=== PATIENT | male | born 1985 | race Caucasian/White ===

== ENCOUNTER 2021-07-10 02:22 | Emergency (ER) | payer SELFPAY ==
[2021-07-10 03:29] LABS: Urine Blood Negative (Negative); Urine Glucose Negative (Negative); Urine Protein Negative (Negative); Urine pH 5.5 (5.0-7.0)
[2021-07-10] MEDS ORDERED: NICOTINE 21 MG/PAT TD ONE (03:52)
[2021-07-10 03:55] LABS: Absolute Lymphocytes (CBC) 2.8 K/uL (0.7-4.9); Basophils % 0.7 % (0-1.3); Lymphocytes % 26.4 % (15.3-44.8); RBC Red Blood Cell Count 4.51 M/uL (4.33-5.43)
[2021-07-10 03:58] LABS: Protime INR 0.95
[2021-07-10 04:15] LABS: Barbiturates NEGATIVE (NEGATIVE); Benzodiazepines NEGATIVE (NEGATIVE); Cocaine NEGATIVE (NEGATIVE); METHAMPHETAM NEGATIVE (NEGATIVE); Methadone NEGATIVE (NEGATIVE); Opiates NEGATIVE (NEGATIVE); Phencyclidine NEGATIVE (NEGATIVE); THC Cannibis NEGATIVE (NEGATIVE)
[2021-07-10 04:16] LABS: ALT/SGPT 31 U/L (12-78); AST/SGOT 14 U/L (15-37); Albumin 4.5 g/dL (3.4-5.0); Alkaline Phosphatase 77 U/L (45-117); BUN Blood Urea Nitrogen 8 mg/dL (7-18); Bicarbonate 27 mmol/L (21-32); Bilirubin Direct < 0.1 mg/dL (0-0.2); Bilirubin Total 0.3 mg/dL (0.2-1.0); Glucose Level 103 mg/dL (74-106); Protein, Total 8.2 g/dL (6.4-8.2); Sodium Level 141 mmol/L (136-145)
--- NOTE | 2021-07-10 05:29 | ER ---
Nurse's Notes [facility] – [place], [place] Name: Sergio Hayden Age: 35 yrs Sex: Male : 1985 Arrival Date: 07/10/2021 Time: 02:23 Bed 5 Private MD: Diagnosis: Alcohol use, unspecified with intoxication Presentation: 07/10 03:01 Chief complaint: Patient states: he is feeling depressed, and suicidal tonight he had a bb plan he had a gun and was thinking of killing himself. Coronavirus screen: At this time, the client does not indicate any symptoms associated with coronavirus-19. Ebola Screen: No symptoms or risks identified at this time. Initial Sepsis Screen: Does the patient meet any 2 criteria? No. Patient's initial sepsis screen is negative. Does the patient have a suspected source of infection? No. Patient's initial sepsis screen is negative. Risk Assessment: Do you want to hurt yourself or someone else? Patient reports no desire to harm self or others. Onset of symptoms is unknown. 03:01 Method Of Arrival: Ambulatory bb 03:01 Acuity: NICK 2 bb Historical: - Allergies: 03:04 tylenol # 3 and tylenol # 4; bb - Home Meds: 03:04 None [Active]; bb - PMHx: 03:04 add; bb - PSHx: 03:04 right ankle surgery; bb - Immunization history:: Adult Immunizations up to date, Client reports having NOT received the Covid vaccine. - Social history:: Smoking status: Patient reports the use of cigarette tobacco products, smokes two packs cigarettes per day. Patient uses alcohol, occasionally. street drugs, marijuana. Screenin:40 Abuse screen: Denies threats or abuse. Nutritional screening: No deficits noted. ea Tuberculosis screening: No symptoms or risk factors identified. Fall Risk None identified. Assessment: 03:40 General: Appears in no apparent distress. Behavior is calm, cooperative, appropriate ea for age. Pain: Denies pain. Neuro: Level of Consciousness is awake, alert, obeys commands, Oriented to person, place, time. Respiratory: Airway is patent Respiratory effort is even, unlabored, Respiratory pattern is regular, symmetrical. Derm: Skin is pink, warm \\T\\ dry. 04:00 Reassessment: Patient and/or family updated on plan of care and expected duration. Pain ea level reassessed. Patient is alert, oriented x 3, equal unlabored respirations, skin warm/dry/pink. 05:00 Reassessment: Patient and/or family updated on plan of care and expected duration. Pain ea level reassessed. Patient is alert, oriented x 3, equal unlabored respirations, skin warm/dry/pink. 06:00 Reassessment: Patient and/or family updated on plan of care and expected duration. Pain ea level reassessed. Patient is alert, oriented x 3, equal unlabored respirations, skin warm/dry/pink. 07:20 General: Appears in no apparent distress. comfortable, Behavior is calm, cooperative, sv appropriate for age. Pain: Denies pain. Neuro: Level of Consciousness is awake, alert, obeys commands, Oriented to person, place, time, situation, Moves all extremities. Full function. Respiratory: Respiratory effort is even, unlabored, Respiratory pattern is regular, symmetrical. Derm: Skin is pink, warm \\T\\ dry. 07:30 Reassessment: Breakfast offered, pt refused at this time. sv 08:30 Reassessment: Patient appears in no apparent distress at this time. Patient and/or hb family updated on plan of care and expected duration. Pain level reassessed. 09:30 Reassessment: Patient appears in no apparent distress at this time. No changes from hb previously documented assessment. Patient and/or family updated on plan of care and expected duration. Pain level reassessed. 10:30 Reassessment: Patient appears in no apparent distress at this time. No changes from hb previously documented assessment. 11:30 Reassessment: Patient appears in no apparent distress at this time. No changes from hb previously documented assessment. Patient and/or family updated on plan of care and expected duration. Pain level reassessed. 12:30 Reassessment: Patient appears in no apparent distress at this time. No changes from hb previously documented assessment. 13:21 Reassessment: Patient appears in no apparent distress at this time. No changes from hb previously documented assessment. Patient and/or family updated on plan of care and expected duration. Pain level reassessed. Patient is alert, oriented x 3, equal unlabored respirations, skin warm/dry/pink. 14:30 Reassessment: Patient appears in no apparent distress at this time. Patient and/or hb family updated on plan of care and expected duration. Pain level reassessed. Patient is alert, oriented x 3, equal unlabored respirations, skin warm/dry/pink. 15:46 Reassessment: Patient appears in no apparent distress at this time. Patient and/or sv family updated on plan of care and expected duration. Pain level reassessed. Patient is alert, oriented x 3, equal unlabored respirations, skin warm/dry/pink. Psych: 03:40 [place] Suicide Severity Screening: In the past month, have you wished you were ea or wished you could go to sleep and not wake up? Patient responds "No." "In the past month, have you actually had any thoughts of killing yourself?" Patient responds "yes." "In your lifetime, have you ever done anything, started to do anything, or prepared to do anything to end your life?" Patient responds "no.". Subjective: Delusions are denied, Hallucinations are denied Having thoughts of suicide. Denies suicidal plan. Objective: Patient is cooperative, Speech is normal, Affect is appropriate. Interventions: Patient placed in hospital gown. Searched person for dangerous items. Safety Checks: Personal items have been removed. Door is open. Patient uses tobacco 2 packs. Vital Signs: 03:01 BP 136 / 91; Pulse 94; Resp 16 S; Temp 98.5(O); Pulse Ox 98% on R/A; Weight 56.7 kg bb (R); Height 5 ft. 5 in. (165.10 cm) (R); Pain 0/10; 08:00 BP 122 / 88; Pulse 88; Resp 16; Pulse Ox 98% ; sv 03:01 Body Mass Index 20.80 (56.70 kg, 165.10 cm) bb ED Course: 02:23 Patient arrived in ED. wm 02:34 Patient's name was called from ER lobby. No response. bb 03:04 Triage completed. bb 03:04 Arm band placed on. bb 03:20 Jaylan Polanco MD is Attending Physician. pkl 03:21 Amarilys Wagner, CEE is Primary Nurse. ea 03:30 Initial lab(s) drawn, by me, sent to lab. Urine collected: clean catch specimen, clear, bb EKG done. Inserted saline lock: 20 gauge in right antecubital area, using aseptic technique. Blood collected. 03:37 Urine Drug Screen Sent. oe 03:40 Patient has correct armband on for positive identification. Bed in low position. Call light in reach. Side rails up X2. 07:03 Acetaminophen Sent. ea 07:03 CBC with Diff Sent. ea 07:03 Basic Metabolic Panel Sent. ea 07:03 ETOH Level Sent. ea 07:48 Primary Nurse role handed off by Amarilys Wagner RN sv 07:48 Marti Carmichael, RN is Primary Nurse. sv 12:15 Alcohol Level Sent. sv 13:41 called [facility] to request evaluation. ks 15:16 Theodora with [facility] on ipad facetime evaluating the patient. mt 15:55 Attending Physician role handed off by Jaylan Polanco MD ma2 15:55 Sally Short MD is Attending Physician. ma2 Administered Medications: 03:34 Drug: Nicoderm CQ Patch 21 mg/24 hr 1 patches Route: Transdermal; Site: affected area; ea Outcome: 05:28 Discharge ordered by . pkl 15:55 Discharge ordered by . ma2 16:22 Patient left the ED. mt Signatures: Marti Carmichael, Jaylan Stanford RN, MD MD pkl Ballard, Brenda, RN RN bb Baxter, Heather, RN RN hb Espinosa, Orlando oe Thompson, Moriah ks Amarilys Wagner RN RN ea Alzahri, Mohammad, MD MD ma2 Marsh, Wendy
--- NOTE | 2021-07-10 05:29 | EDPHYS ---
Physician Documentation [facility] Name: Sergio Hayden Age: 35 yrs Sex: Male : 1985 Arrival Date: 07/10/2021 Time: 02:23 Bed 5 Private MD: ED Physician Sally Short HPI: 07/10 03:28 This 35 yrs old Male presents to ER via Ambulatory with complaints of pkl Suicidal Ideation. 03:28 The patient presents to the emergency department with depression, over work, out of pkl work for a few months. Had right ankle surgery 2 months ago at [facility]. Patient said had suicidal ideation tonight. Had a plan to kill himself with his gun. Historical: - Allergies: 03:04 tylenol # 3 and tylenol # 4; bb - Home Meds: 03:04 None [Active]; bb - PMHx: 03:04 add; bb - PSHx: 03:04 right ankle surgery; bb - Immunization history:: Adult Immunizations up to date, Client reports having NOT received the Covid vaccine. - Social history:: Smoking status: Patient reports the use of cigarette tobacco products, smokes two packs cigarettes per day. Patient uses alcohol, occasionally. street drugs, marijuana. ROS: 03:28 Eyes: Negative for injury, pain, redness, and discharge, ENT: Negative for injury, pkl pain, and discharge, Neck: Negative for injury, pain, and swelling, Cardiovascular: Negative for chest pain, palpitations, and edema, Respiratory: Negative for shortness of breath, cough, wheezing, and pleuritic chest pain, Abdomen/GI: Negative for abdominal pain, nausea, vomiting, diarrhea, and constipation, Back: Negative for injury and pain, : Negative for injury, bleeding, discharge, and swelling, MS/Extremity: Negative for injury and deformity, Skin: Negative for injury, rash, and discoloration, Neuro: Negative for headache, weakness, numbness, tingling, and seizure. 03:28 Psych: Positive for depression, suicidal ideation. Exam: 03:28 Head/Face: Normocephalic, atraumatic. Eyes: Pupils equal round and reactive to light, pkl extra-ocular motions intact. Lids and lashes normal. Conjunctiva and sclera are non-icteric and not injected. Cornea within normal limits. Periorbital areas with no swelling, redness, or edema. ENT: Nares patent. No nasal discharge, no septal abnormalities noted. Tympanic membranes are normal and external auditory canals are clear. Oropharynx with no redness, swelling, or masses, exudates, or evidence of obstruction, uvula midline. Mucous membranes moist. Neck: Trachea midline, no thyromegaly or masses palpated, and no cervical lymphadenopathy. Supple, full range of motion without nuchal rigidity, or vertebral point tenderness. No Meningismus. Chest/axilla: Normal chest wall appearance and motion. Nontender with no deformity. No lesions are appreciated. Cardiovascular: Regular rate and rhythm with a normal S1 and S2. No gallops, murmurs, or rubs. Normal PMI, no JVD. No pulse deficits. Respiratory: Lungs have equal breath sounds bilaterally, clear to auscultation and percussion. No rales, rhonchi or wheezes noted. No increased work of breathing, no retractions or nasal flaring. Abdomen/GI: Soft, non-tender, with normal bowel sounds. No distension or tympany. No guarding or rebound. No evidence of tenderness throughout. Back: No spinal tenderness. No costovertebral tenderness. Full range of motion. Skin: Warm, dry with normal turgor. Normal color with no rashes, no lesions, and no evidence of cellulitis. MS/ Extremity: Pulses equal, no cyanosis. Neurovascular intact. Full, normal range of motion. Neuro: Awake and alert, GCS 15, oriented to person, place, time, and situation. Cranial nerves II-XII grossly intact. Motor strength 5/5 in all extremities. Sensory grossly intact. Cerebellar exam normal. Normal gait. 03:28 Psych: Behavior/mood is cooperative, Affect is calm, Patient having thoughts of suicide. Plan for suicide is kill himself with his gun Vital Signs: 03:01 BP 136 / 91; Pulse 94; Resp 16 S; Temp 98.5(O); Pulse Ox 98% on R/A; Weight 56.7 kg bb (R); Height 5 ft. 5 in. (165.10 cm) (R); Pain 0/10; 08:00 BP 122 / 88; Pulse 88; Resp 16; Pulse Ox 98% ; sv 03:01 Body Mass Index 20.80 (56.70 kg, 165.10 cm) bb MDM: 03:20 Patient medically screened. pkl 06:21 Data reviewed: vital signs, nurses notes, lab test result(s), EKG. pkl 15:50 Differential diagnosis: drug withdrawal. acute psychotic break, depression, psychosis ma2 secondary to non-compliance. Counseling: I had a detailed discussion with the patient and/or guardian regarding: the historical points, exam findings, and any diagnostic results supporting the discharge/admit diagnosis, the presence of at least one elevated blood pressure reading (>120/80) during this emergency department visit, the need for outpatient follow up. Response to treatment: the patient's symptoms have markedly improved after treatment. ED course: received signout from dr. pro on this patient as alcohol intoxication who states he was suicidal when intoxicated but not anymore after he became sobar and he wants to go home. dr. pro plan is to wait for [facility] evaluation and go with their recommendation. i evaluated the patient and he states he is not suicidal and want to go home, low risk per SAD MAN score. [facility] also evaluated the patietn and they advised outpatient management they will set an appointment with him, they also advised that he is staying with his mom and has good support system. he has a gun and mom has taken it and she will store it away from him . 07/10 03:21 Order name: Acetaminophen 07/10 03:21 Order name: Basic Metabolic Panel 07/10 03:21 Order name: CBC with Diff 07/10 03:21 Order name: ETOH Level 07/10 03:21 Order name: Hepatic Function; Complete Time: 05:36 07/10 03:21 Order name: PT-INR; Complete Time: 05:36 07/10 03:21 Order name: Ptt, Activated; Complete Time: 05:36 07/10 03:21 Order name: Salicylate; Complete Time: 05:36 07/10 03:21 Order name: Urine Drug Screen; Complete Time: 05:36 07/10 03:21 Order name: Acetaminophen Level; Complete Time: 05:36 EDVA 07/10 03:21 Order name: Basic Metabolic Panel; Complete Time: 05:36 EDVA 07/10 03:21 Order name: CBC with Automated Diff; Complete Time: 05:36 EDVA 07/10 03:21 Order name: Alcohol Serum/Plasma; Complete Time: 05:36 EDMS 07/10 03:29 Order name: Urine Dipstick-Ancillary; Complete Time: 03:34 EDMS 07/10 03:21 Order name: EKG; Complete Time: 03:21 07/10 03:21 Order name: EKG - Nurse/Tech; Complete Time: 03:34 ea 07/10 03:21 Order name: IV Saline Lock; Complete Time: 07:11 ea 07/10 03:21 Order name: Labs collected and sent; Complete Time: 07:11 ea 07/10 03:21 Order name: Suicide Screening ([place]); Complete Time: 09:43 ea 07/10 03:21 Order name: Urine Dipstick-Ancillary (obtain specimen); Complete Time: 03:37 ea 07/10 03:40 Order name: COVID-19 : Document "Date of Symptom Onset" if Symptomatic. 07/10 06:21 Order name: ETOH Level; Complete Time: 09:52 [facility] 07/10 09:24 Order name: EKG Electrocardiogram; Complete Time: 12:15 [facility] 07/10 11:46 Order name: Alcohol Level [facility] 07/10 11:47 Order name: Alcohol Serum/Plasma [facility] 07/10 11:47 Order name: Diet Finger Food; Complete Time: 11:47 sv Administered Medications: 03:34 Drug: Nicoderm CQ Patch 21 mg/24 hr 1 patches Route: Transdermal; Site: affected area; ea Disposition Summary: 07/10/21 15:55 Discharge Ordered Location: Home(07/10/21 15:55) ma2 Condition: Stable(07/10/21 15:55) ma2 Diagnosis - Alcohol use, unspecified with intoxication ma2 Followup: ma2 - With: Private Physician - When: Tomorrow - Reason: Continuance of care Discharge Instructions: - Discharge Summary Sheet ma2 - Alcohol Intoxication, [id number] ma2 Forms: - Medication Reconciliation Form ma2 - Thank You Letter ma2 - Antibiotic Education ma2 - Prescription Opioid Use ma2 Signatures: Dispatcher [employer] EDJaylan Lee MD MD pkl Ballard, Brenda, RN RN bb Antunez, Elena, RN RN ea Alzahri, Mohammad, MD MD ma2 Corrections: (The following items were deleted from the chart) 05:29 05:28 Home pkl pkl 05:29 05:28 new pkl pkl 05:29 05:28 have improved pkl pkl 05: 05:28 Stable pkl pkl 05:29 05:28 Head injury. Substance abuse pkl pkl
--- NOTE | 2021-07-10 07:42 | EKG ---
Test Date: 2021-07-10 Test Time: 03:27:17 Control Operator Flow Coat: MELANY MEASUREMENT RESULTS: Intervals: Rate: 0 ID: QRSD: 0 QT: 0 QTc: 0 [place]: P: ID: QRS: 0 T: 0 INTERPRETIVE STATEMENTS: No QRS complexes found, no ECG analysis possible No previous ECG available for comparison Electronically Signed On 07-10-21 07:41:44 CDT by Carl Overton
--- NOTE | 2021-07-10 11:06 | EKG ---
Test Date: 2021-07-10 Test Time: 03:28:42 Sales Account Coordinator: MELANY MEASUREMENT RESULTS: Intervals: Rate: 87 NH: 152 QRSD: 86 QT: 338 QTc: 406 [place]: P: 52 NH: 152 QRS: 31 T: 21 INTERPRETIVE STATEMENTS: Normal sinus rhythm Normal ECG Compared to ECG 07/10/2021 03:27:17 No significant changes Electronically Signed On 07-10-21 11:05:33 CDT by Carl Overton
[2021-07-10 16:41] VITALS: TEMP 98.5; O2SAT 98
[2021-07-10 16:42] VITALS: BP 122/88
== END 2021-07-10 16:22 | disposition home or self-care (01) ==
LOC: ER 02:22
DX: F10.929 Alcohol use, unspecified with intoxication, unspecified (principal)
CPT/HCPCS: 36415; 80048; 80076; 80307; 80320; 80329; 81003; 85025; 85610; 85730; 93005; 99284

== ENCOUNTER 2023-10-20 13:21 | Emergency (ER) | payer SELFPAY ==
--- NOTE | 2023-10-20 14:36 | RAD REPORT ---
EXAM DESCRIPTION: CT - Head Brain Wo Cont - 10/20/2023 2:28 pm CLINICAL HISTORY: Headache COMPARISON: none TECHNIQUE: Computed axial tomography of the head was obtained. IV contrast was not requested. All CT scans are performed using dose optimization technique as appropriate and may include automated exposure control or mA/KV adjustment according to patient size. FINDINGS: Some of the images are degraded by patient motion artifact An intracranial bleed is not seen The ventricles are normal in caliber No significant hypodense areas within the brain visualized No extra-axial fluid collection is noted. Small calcifications right parietal lobe may be secondary to prior inflammation or vascular anomaly Fluid within the sinuses/ mastoids is not seen IMPRESSION: No acute intracranial abnormality is seen If patient's symptoms persist MRI of the brain would be recommended
[2023-10-20 14:37] LABS: Absolute Lymphocytes (CBC) 1.4 K/uL (0.7-4.9); Hematocrit 46.6 % (39.6-49.0); Lymphocytes % 13.4 % (15.3-44.8); MCV 100.3 fL (80-100); MPV 7.4 fL (7.6-11.3); Platelets 361 thou/uL (152-406); RBC Red Blood Cell Count 4.65 M/uL (4.33-5.43)
[2023-10-20 14:38] LABS: Protime INR 1.01
--- NOTE | 2023-10-20 14:40 | RAD REPORT ---
EXAM DESCRIPTION: [place] Single View10/20/2023 2:32 pm CLINICAL HISTORY: Chest pain COMPARISON: none FINDINGS: Calcified granuloma left lung. The lungs appear clear of acute infiltrate. The heart is normal size IMPRESSION: No acute abnormalities displayed
[2023-10-20 14:52] LABS: Bilirubin Direct 0.1 mg/dL (0-0.2); Bilirubin Indirect, Calculated 0.3 mg/dL (0.2-0.8); Bilirubin Total 0.4 mg/dL (0.2-1.0); Magnesium 1.9 mg/dL (1.6-2.4); Potassium 4.1 mEq/L (3.5-5.1); Protein, Total 7.5 g/dL (6.4-8.2)
[2023-10-20 16:18] LABS: Barbiturates NEGATIVE (NEGATIVE); Benzodiazepines POSITIVE (NEGATIVE); Cocaine NEGATIVE (NEGATIVE); METHAMPHETAM NEGATIVE (NEGATIVE); Methadone NEGATIVE (NEGATIVE); Opiates NEGATIVE (NEGATIVE); Phencyclidine NEGATIVE (NEGATIVE); THC Cannibis POSITIVE (NEGATIVE)
[2023-10-20] MEDS ORDERED: NA CHLORIDE 0.9% 1,000 ML ONE (16:18)
[2023-10-20] MEDS ORDERED: KETOROLAC 30 MG/ML INJ ONE (16:18)
[2023-10-20] MEDS ORDERED: DIPHENHYDRAMINE 50 MG/ML VIAL ONE (16:18)
[2023-10-20] MEDS ORDERED: METOCLOPRAMIDE 10 MG/2mL INJ ONE (16:18)
[2023-10-20 16:26] LABS: Specific Gravity 1.011 (1.005-1.030); Urine Bacteria None Seen /HPF (<20); Urine Bilirubin NEGATIVE (Negative); Urine Blood Negative (Negative); Urine Clarity Clear (Clear); Urine Color Colorless (Yellow); Urine Glucose NEGATIVE (Negative); Urine Mucus Slight /HPF (None Seen); Urine Protein NEGATIVE (Negative); Urine RBC <5 /HPF (None Seen); Urine Urobilinogen Normal (Normal); Urine pH 5.5 (5.0-7.0)
--- NOTE | 2023-10-20 16:34 | ER ---
Nurse's Notes [facility] Name: Sergio Hayden Age: 37 yrs Sex: Male : 1985 Arrival Date: 10/20/2023 Time: 13:21 Bed 6 Private MD: Diagnosis: Headache;Other visual disturbances;Nausea with vomiting, unspecified;Other seizures Presentation: 10/20 13:39 Chief complaint: Parent and/or Guardian states: he has been having a bad headache for 3 nj1 months, taking aleve. Has been loosing weight along with nausea and vomiting. Has had 2 seizures six months ago, a few days apart, no history. Seems confused, agitated, forgetting things/conversations. Sometimes has trouble with his vision "being blurry". Coronavirus screen: Vaccine status: Patient reports being unvaccinated. Ebola Screen: Patient denies travel to an Ebola-affected area in the 21 days before illness onset. Initial Sepsis Screen: Does the patient meet any 2 criteria? No. Patient's initial sepsis screen is negative. Does the patient have a suspected source of infection? No. Patient's initial sepsis screen is negative. Risk Assessment: Do you want to hurt yourself or someone else? Patient reports no desire to harm self or others. Onset of symptoms was July 2023. 13:39 Method Of Arrival: Ambulatory [facility] 13:39 Acuity: NICK 3 nj1 Historical: - Allergies: 13:44 tylenol # 3 and tylenol # 4; nj1 - PMHx: 13:44 ADD; nj1 - PSHx: 13:44 right ankle surgery; nj1 - Immunization history:: Client reports having NOT received the Covid vaccine. - Social history:: Smoking status: Patient reports the use of cigarette tobacco products, smokes one pack cigarettes per day. Screenin:30 [facility] ED Fall Risk Assessment (Adult) History of falling in the last 3 months, ko1 including since admission No falls in past 3 months (0 pts) Confusion or Disorientation No (0 pts) Intoxicated or Sedated No (0 pts) Impaired Gait No (0 pts) Mobility Assist Device Used No (0 pt) Altered Elimination No (0 pt) Score/Fall Risk Level 0 - 2 = Low Risk Oriented to surroundings, Maintained a safe environment, Educated pt \\T\\ family on fall prevention, incl call for assistance when getting out of bed, Assessed \\T\\ reinforced patient's understanding of fall precautions, Provided non-skid footwear, Hourly rounding (assess needs \\T\\ fall precautionary measures) done, Used ambulatory aids as needed (educated on \\T\\ assisted with), Used gait belt as appropriate. Abuse screen: Denies threats or abuse. Denies injuries from another. Nutritional screening: No deficits noted. Tuberculosis screening: No symptoms or risk factors identified. Assessment: 13:30 General: Appears in no apparent distress. comfortable, Behavior is calm, cooperative, ko1 appropriate for age. Pain: Complains of pain in headache. Neuro: No deficits noted. Cardiovascular: No deficits noted. Respiratory: No deficits noted. GI: No deficits noted. : No deficits noted. EENT: No deficits noted. Derm: No deficits noted. Musculoskeletal: No deficits noted. Vital Signs: 13:39 BP 140 / 96; Pulse 89; Resp 18; Temp 98.6(O); Pulse Ox 97% ; Weight 58.97 kg; Height 5 nj1 ft. 5 in. ; Pain 6/10; 14:19 BP 156 / 95; Pulse 89; Resp 17; Temp 99; Pulse Ox 98% ; Weight 61.23 kg; Height 5 ft. 5 ls5 in. ; Pain 6/10; 16:50 BP 148 / 88; Pulse 85; Resp 14; Pulse Ox 99% ; ko1 14:19 Body Mass Index 22.46 (61.23 kg, 165.1 cm) ls5 13:39 Pain Scale: Adult nj1 14:19 Pain Scale: Adult ls5 ED Course: 13:23 Patient arrived in ED. im 13:26 Fred Stevens PA is PHCP. cp 13:26 Fred Echavarria MD is Attending Physician. cp 13:30 Patient has correct armband on for positive identification. Bed in low position. Call ko1 light in reach. Provided Education on: na. Pulse ox on. NIBP on. Door closed. Noise minimized. Lights dimmed. Warm blanket given. 13:30 No provider procedures requiring assistance completed. ko1 13:44 Triage completed. nj1 13:44 Arm band placed on right wrist. nj1 13:45 Isis See, CEE is Primary Nurse. ko1 14:14 Inserted saline lock: 20 gauge in right antecubital area, using aseptic technique. ls5 Blood collected. 14:15 EKG done, by ED staff, reviewed by Fred MUSA. ls5 14:29 CT Head Brain wo Cont In Process Unspecified. EDMS 14:34 XRAY Chest (1 view) In Process Unspecified. EDMS 15:55 UDS Sent. ls5 15:55 Urinalysis W/Microscopic Sent. ls5 16:32 Salomon Vila MD is Referral Physician. cp 16:50 IV discontinued, intact, bleeding controlled, No redness/swelling at site. Pressure ko1 dressing applied. Administered Medications: 16:20 Drug: NS 0.9% IV 1000 ml IV at 1 bolus Per protocol; 1000 mL bolus Route: IV; Rate: 1 ko1 bolus; Site: right antecubital; 16:21 Drug: metoCLOPramide IVP 10 mg IVP once; over 1 to 2 minutes Route: IVP; Site: right ko1 antecubital; 16:23 Drug: Ketorolac IVP 15 mg IVP once Route: IVP; Site: right antecubital; ko1 16:25 Drug: diphenhydrAMINE IVP 25 mg IVP once Route: IVP; Site: right antecubital; ko1 Medication: 16:50 VIS not applicable for this client. ko1 Outcome: 16:33 Discharge ordered by MD. cp 16:59 Patient left the ED. ph Signatures: Dispatcher [employer] Nisreen Landers RN Fred Kolb ph, PA PA cp Isis See, RN RN ko1 Alfredo Rivera ls5 Johanny Marcano RN RN nj1 Adrienne Cotto im
--- NOTE | 2023-10-20 16:34 | EDPHYS ---
Physician Documentation [facility] Name: Sergio Hayden Age: 37 yrs Sex: Male : 1985 Arrival Date: 10/20/2023 Time: 13:21 Bed 6 Private MD: FANG Physician Fred Echavarria HPI: 10/20 14:20 This 37 yrs old Male presents to ER via Ambulatory with complaints of Headache, Blurred cp Vision, Nausea, Vomiting, Probable Seizure. 14:20 The patient complains of pain to the general. The patient describes the headache as cp aching, constant, waxing and waning. Onset: The symptoms/episode began/occurred June 2023. Associated signs and symptoms: Pertinent positives: Intermittent blurred vision, intermittent nausea vomiting and reports about 2 seizure episodes in which patient lost consciousness and had generalized shaking but no loss of bowel or bladder function. Mother who provides much of the history reports patient did have seizures as an adolescent but has not had any seizures up until recently and is not on any current seizure therapy. Severity of symptoms: in the emergency department the pain is unchanged, despite home interventions. 14:20 Patient does admit to daily alcohol use of approximately 6 pack of beer. cp Historical: - Allergies: 13:44 tylenol # 3 and tylenol # 4; nj1 - PMHx: 13:44 ADD; nj1 - PSHx: 13:44 right ankle surgery; nj1 - Immunization history:: Client reports having NOT received the Covid vaccine. - Social history:: Smoking status: Patient reports the use of cigarette tobacco products, smokes one pack cigarettes per day. ROS: 14:25 Constitutional: Negative for body aches, chills, fever, poor PO intake, cp 14:25 Eyes: Positive for blurry vision, Negative for discharge, pain, redness, cp 14:25 ENT: Negative for drainage from ear(s), ear pain, sore throat, difficulty swallowing, difficulty handling secretions, 14:25 Neck: Negative for pain with movement, pain at rest, stiffness, 14:25 Cardiovascular: Negative for chest pain, edema, palpitations, 14:25 Respiratory: Negative for cough, shortness of breath, wheezing, 14:25 Abdomen/GI: Positive for nausea and vomiting, Negative for abdominal pain, diarrhea, constipation, black/tarry stool, rectal bleeding, 14:25 Back: Negative for pain at rest, pain with movement, 14:25 : Negative for urinary symptoms, flank pain, testicular pain 14:25 Neuro: Positive for headache, history of seizure activity, Negative for altered mental status, numbness, speech changes, 14:25 All other systems are negative, Exam: 14:05 ECG was reviewed by the Attending Physician. cp 14:30 Constitutional: The patient appears in no acute distress, alert, awake, cp non-diaphoretic, non-toxic, well developed, well nourished, 14:30 Head/Face: Normocephalic, atraumatic. cp 14:30 Eyes: Periorbital structures: appear normal, Pupils: equal, round, and reactive to light and accomodation, Extraocular movements: intact throughout, Conjunctiva: normal, no exudate, no injection, Sclera: no appreciated abnormality, Lids and lashes: appear normal, bilaterally, 14:30 ENT: External ear(s): are unremarkable, Ear canal(s): are normal, clear, TM's: dullness, bilaterally, Nose: is normal, Mouth: Lips: moist, Oral mucosa: pink and intact, moist, Posterior pharynx: Airway: no evidence of obstruction, patent, erythema, is not appreciated, exudate, is not appreciated, 14:30 Neck: ROM/movement: is normal, is supple, without pain, no range of motions limitations, no meningismus, no nuchal rigidity, 14:30 Chest/axilla: Inspection: normal, Palpation: is normal, no crepitus, no tenderness, 14:30 Cardiovascular: Rate: normal, Rhythm: regular, 14:30 Respiratory: the patient does not display signs of respiratory distress, Respirations: normal, no use of accessory muscles, no retractions, labored breathing, is not present, Breath sounds: are clear throughout, no decreased breath sounds, no stridor, no wheezing, 14:30 Abdomen/GI: Inspection: abdomen appears normal, Bowel sounds: active, all quadrants, Palpation: abdomen is soft and non-tender, in all quadrants, 14:30 Back: pain, is absent, ROM is normal, 14:30 Skin: no rash present. 14:30 Neuro: Orientation: to person, place \T\ time. Mentation: is normal, Cerebellar function: Romberg testing is negative, normal finger to nose testing, heel to lamb testing is normal, Motor: moves all fours, strength is normal, Sensation: is normal, Vital Signs: 13:39 BP 140 / 96; Pulse 89; Resp 18; Temp 98.6(O); Pulse Ox 97% ; Weight 58.97 kg; Height 5 nj1 ft. 5 in. ; Pain 6/10; 14:19 BP 156 / 95; Pulse 89; Resp 17; Temp 99; Pulse Ox 98% ; Weight 61.23 kg; Height 5 ft. 5 ls5 in. ; Pain 6/10; 16:50 BP 148 / 88; Pulse 85; Resp 14; Pulse Ox 99% ; ko1 14:19 Body Mass Index 22.46 (61.23 kg, 165.1 cm) ls5 13:39 Pain Scale: Adult nj1 14:19 Pain Scale: Adult ls5 MDM: 13:48 Patient medically screened. 16:33 Data reviewed: vital signs, nurses notes, lab test result(s), EKG, radiologic studies, cp CT scan, plain films. 16:33 I considered the following discharge prescriptions or medication management in the emergency department Medications were administered in the Emergency Department. See MAR. Independent interpretation of the following test(s) in the Emergency Department EKG: See my EKG interpretation above. Historians other than the Patient: Parent: mother provides HPI. Counseling: I had a detailed discussion with the patient and/or guardian regarding the historical points, exam findings, and any diagnostic results supporting the discharge/admit diagnosis, lab results, radiology results, the need for outpatient follow up, for definitive care, a family practitioner, a neurologist, to return to the emergency department if symptoms worsen or persist or if there are any questions or concerns that arise at home. 10/20 14:17 Order name: Basic Metabolic Panel; Complete Time: 15:05 10/20 15:05 Interpretation: Normal except: GLUC 127. 10/20 14:17 Order name: CBC with Diff; Complete Time: 15:05 10/20 15:07 Interpretation: Normal except: MCV 100.3; MPV 7.4; RODERICK% 75.9; LYM% 13.4. 10/20 14:17 Order name: LFT's; Complete Time: 15:05 10/20 15:07 Interpretation: Reviewed. 10/20 14:17 Order name: Magnesium; Complete Time: 15:05 cp 10/20 15:09 Interpretation: Reviewed. cp 10/20 14:17 Order name: PT-INR; Complete Time: 15:05 cp 10/20 15:08 Interpretation: Reviewed. cp 10/20 15:05 Order name: Urinalysis W/Microscopic; Complete Time: 16:29 cp 10/20 16:32 Interpretation: Reviewed. cp 10/20 15:05 Order name: UDS; Complete Time: 16:29 cp 10/20 16:29 Interpretation: Normal except: BZO POSITIVE; THC POSITIVE. cp 10/20 14:17 Order name: XRAY Chest (1 view); Complete Time: 15:05 cp 10/20 15:08 Interpretation: Report review. 10/20 14:17 Order name: CT Head Brain wo Cont; Complete Time: 15:05 10/20 15:08 Interpretation: Report reviewed. 10/20 14:17 Order name: EKG; Complete Time: 14:18 cp 10/20 14:17 Order name: Cardiac monitoring; Complete Time: 14:44 cp 10/20 14:17 Order name: EKG - Nurse/Tech; Complete Time: 14:41 cp 10/20 14:17 Order name: IV Saline Lock; Complete Time: 14:41 cp 10/20 14:17 Order name: Labs collected and sent; Complete Time: 14:41 10/20 14:17 Order name: O2 Per Protocol; Complete Time: 14:36 10/20 14:17 Order name: O2 Sat Monitoring; Complete Time: 14:36 cp EC:05 Rate is 84 beats/min. Rhythm is regular. WA interval is normal. QRS interval is normal. cp QT interval is normal. T waves are Inverted in lead aVR. Interpreted by me. Reviewed by me. Administered Medications: 16:20 Drug: NS 0.9% IV 1000 ml IV at 1 bolus Per protocol; 1000 mL bolus Route: IV; Rate: 1 ko1 bolus; Site: right antecubital; 16:21 Drug: metoCLOPramide IVP 10 mg IVP once; over 1 to 2 minutes Route: IVP; Site: right ko1 antecubital; 16:23 Drug: Ketorolac IVP 15 mg IVP once Route: IVP; Site: right antecubital; ko1 16:25 Drug: diphenhydrAMINE IVP 25 mg IVP once Route: IVP; Site: right antecubital; ko1 Disposition Summary: 10/20/23 16:33 Discharge Ordered Notes: Location: Home cp Problem: new cp Symptoms: have improved cp Condition: Stable cp Diagnosis - Headache cp - Other visual disturbances cp - Nausea with vomiting, unspecified cp - Other seizures cp Followup: cp - With: Salomon Vila MD - When: 2 - 3 days - Reason: Recheck today's complaints Discharge Instructions: - Discharge Summary Sheet cp - Blurred Vision, Adult cp - General Headache Without Cause cp - Nausea and Vomiting, Adult cp - Seizure, Adult cp Forms: - Medication Reconciliation Form cp - Thank You Letter cp - Antibiotic Education cp - Prescription Opioid Use cp - Patient Portal Instructions cp - Leadership Thank You Letter cp Prescriptions: - Fioricet 50-300-40 mg Oral capsule - take 1 capsule ORAL route every 6 hours As needed; 20 capsule; Refills: 0, cp Product Selection Permitted - promethazine 25 mg Oral Tablet - take 1 tablet ORAL route every 6 hours As needed; 20 tablet; Refills: 0, cp Product Selection Permitted Signatures: Dispatcher [employer] EDFred Rudolph PA PA cp Isis See RN RN ko1 Johanny Marcano RN RN nj1
[2023-10-20 17:22] VITALS: TEMP 99
[2023-10-20 17:28] VITALS: BP 148/88; O2SAT 99
--- NOTE | 2023-10-24 12:35 | EKG ---
Test Date: 2023-10-20 Test Time: 13:56:07 Architectural Practice Manager: JO MEASUREMENT RESULTS: Intervals: Rate: 84 TX: 150 QRSD: 98 QT: 336 QTc: 397 Cantril: P: 46 TX: 150 QRS: 58 T: 41 INTERPRETIVE STATEMENTS: Normal sinus rhythm Normal ECG Compared to ECG 07/10/2021 03:28:42 No significant changes Electronically Signed On 10-24-23 12:28:13 CONGRESSIONAL DISTRICT AIDE by Dagoberto Acevedo
== END 2023-10-20 16:59 | disposition home or self-care (01) ==
LOC: ER 13:21
DX: R51.9 Headache, unspecified (principal); H53.8 Other visual disturbances; R11.2 Nausea with vomiting, unspecified; R56.9 Unspecified convulsions; F17.210 Nicotine dependence, cigarettes, uncomplicated; Z88.5 Allergy status to narcotic agent; Z88.6 Allergy status to analgesic agent; Z28.310 Unvaccinated for COVID-19
CPT/HCPCS: 36415; 70450; 71045; 80048; 80076; 80307; 81001; 83735; 85025; 85610; 93005; 96374; 96375; 99284; J1200; J2765; J7030

== ENCOUNTER 2025-03-27 02:10 | Emergency (ER) | payer SELFPAY ==
[2025-03-27] MEDS ORDERED: IBUPROFEN 400 MG TAB ONE (02:49)
[2025-03-27] MEDS ORDERED: HYDROCODONE/APAP 10/325 TAB ONE (02:53)
[2025-03-27] MEDS ORDERED: methocarbamoL 750 MG TAB ONE (02:53)
--- NOTE | 2025-03-27 04:31 | ER ---
Nurse's Notes [facility] Name: Sergio Hayden Age: 39 yrs Sex: Male : 1985 Arrival Date: 03/27/2025 Time: 02:10 Bed 18 Private MD: Diagnosis: Acute right ankle sprain, acute right ankle lateral ligaments sprain Presentation: 03/27 02:12 Chief complaint: Patient states: TWISTED RIGHT ANKLE, C/O PAIN TO LATERAL RIGHT ANKLE. br2 PT STATES HE HAS PINS IN THAT LEG DUE TO A PREVIOUS INJURY. Coronavirus screen: Client denies travel out of the [place] in the last 14 days. Ebola Screen: Patient denies exposure to infectious person. Initial Sepsis Screen: Does the patient meet any 2 criteria? No. Patient's initial sepsis screen is negative. Does the patient have a suspected source of infection?. Risk Assessment: Do you want to hurt yourself or someone else? Patient reports no desire to harm self or others. Onset of symptoms was March 27, 2025 at 01:00. 02:12 Method Of Arrival: EMS: [facility] br2 02:12 Acuity: NICK 4 br2 02:24 Care prior to arrival: None. Mechanism of Injury: Fall down 5 steps. Trauma event rg5 details: Injury occurred in the [facility]. Triage Assessment: 02:15 General: Appears uncomfortable, Behavior is calm, cooperative. Pain: Complains of pain br2 in right ankle Pain currently is 8 out of 10 on a pain scale. Musculoskeletal: Capillary refill < 3 seconds, Range of motion: intact in right ankle. Historical: - Allergies: 02:15 tylenol # 3 and tylenol # 4; br2 - PMHx: 02:15 ADD; br2 - PSHx: 02:15 right ankle surgery; br2 - Immunization history:: Adult Immunizations up to date. - Infectious Disease History:: Denies. - Immunization history: Last tetanus immunization: unknown. - Social history:: Smoking status: Patient reports the use of cigarette tobacco products, smokes one pack cigarettes per day. Patient uses alcohol, occasionally. Patient/guardian denies using street drugs. - Family history:: not pertinent. Screenin:24 Abuse screen: Denies threats or abuse. Tuberculosis screening: No symptoms or risk rg5 factors identified. 02:30 [facility] ED Fall Risk Assessment (Adult) History of falling in the last 3 months, rg5 including since admission Yes- single mechanical fall (1 pt) Confusion or Disorientation No (0 pts) Intoxicated or Sedated No (0 pts) Impaired Gait No (0 pts) Mobility Assist Device Used No (0 pt) Altered Elimination Score/Fall Risk Level 0 - 2 = Low Risk Oriented to surroundings, Maintained a safe environment, Provided non-skid footwear. Nutritional screening: No deficits noted. Primary Survey: 02:24 NO uncontrolled hemorrhage observed. A: The client is awake and alert. The airway is rg5 patent. Breathing/Chest: Spontaneous respiratory effort, equal unlabored respirations, breath sounds clear bilaterally, regular pattern, symmetrical chest rise and fall. Circulation: No external hemorrhage present. Regular and strong central pulse, skin warm/dry/normal color. Disability Pupils are equal, round, reactive to light and accommodation. Client is alert. Exposure/Environment: All clothing and personal items were removed. Forensic evidence collection is not deemed to be indicated at this time. Items placed in patient belonging bag. There is no evidence of uncontrolled external bleeding. Assessment: 02:24 General: Appears in no apparent distress. comfortable, Behavior is calm, cooperative, rg5 appropriate for age. Pain: Complains of pain in right foot Pain currently is 9 out of 10 on a pain scale. Quality of pain is described as aching, Pain began 30 min ago. Neuro: Level of Consciousness is awake, alert, obeys commands, Oriented to person, place, time, situation. EENT: No signs and/or symptoms were reported regarding the EENT system. Cardiovascular: Patient's skin is warm and dry. Respiratory: Airway is patent Trachea midline Respiratory effort is even, unlabored. GI: No signs and/or symptoms were reported involving the gastrointestinal system. : No signs and/or symptoms were reported regarding the genitourinary system. Derm: Skin is intact, Skin is dry, Skin is normal, Skin temperature is warm. Musculoskeletal: Circulation, motion, and sensation intact. Range of motion: intact in all extremities. 03:00 Reassessment: Patient and/or family updated on plan of care and expected duration. Pain rg5 level reassessed. Patient is alert, oriented x 3, equal unlabored respirations, skin warm/dry/pink. 04:05 Reassessment: Patient and/or family updated on plan of care and expected duration. Pain rg5 level reassessed. Patient is alert, oriented x 3, equal unlabored respirations, skin warm/dry/pink. Patient states feeling better. Patient states symptoms have improved. Vital Signs: 02:12 BP 138 / 90; Pulse 101; Resp 18; Temp 97.4(TE); Pulse Ox 99% on R/A; Weight 58.97 kg; br2 Height 5 ft. 5 in. ; Pain 8/10; 02:30 BP 132 / 83; Pulse 95; Resp 18; Pulse Ox 98% on R/A; rg5 03:00 BP 121 / 79; Pulse 93; Resp 18; Pulse Ox 98% on R/A; rg5 04:01 BP 122 / 76; Pulse 97; Pulse Ox 100% on R/A; Pain 0/10; rg5 02:12 Body Mass Index 21.63 (58.97 kg, 165.1 cm) br2 02:12 Pain Scale: Adult br2 04:01 Pain Scale: Adult rg5 [place] Coma Score: 02:24 Eye Response: spontaneous(4). Motor Response: obeys commands(6). Verbal Response: rg5 oriented(5). Total: 15. 20:52 Eye Response: spontaneous(4). Motor Response: obeys commands(6). Verbal Response: sp4 oriented(5). Total: 15. Trauma Score (Adult): 02:24 Eye Response: spontaneous(1); Verbal Response: oriented(1); Motor Response: obeys rg5 commands(2); Systolic BP: > 89 mm Hg(4); Respiratory Rate: 10 to 29 per min(4); Mayra Score: 15; Trauma Score: 12 ED Course: 02:11 Patient arrived in ED. jj6 02:15 Triage completed. br2 02:16 Celestino Gu, CEE is Primary Nurse. rg5 02:24 Patient has correct armband on for positive identification. Bed in low position. Call rg5 light in reach. Side rails up X 1. Patient maintains SpO2 saturation greater than 95% on room air. 02:24 Patient maintains SpO2 saturation greater than 95% on room air. rg5 02:25 Arm band placed on. rg5 02:30 Door closed. Noise minimized. Verbal reassurance given. rg5 02:30 No provider procedures requiring assistance completed. rg5 02:50 Juanito Fuentes MD is Attending Physician. sp4 03:22 Foot Right 3 View XRAY In Process Unspecified. EDMS 03:22 Ankle Right 3 View XRAY In Process Unspecified. EDMS 04:42 Patient did not have IV access during this emergency room visit. bleeding controlled, rg5 No redness/swelling at site. Pressure dressing applied. Administered Medications: 02:58 Drug: Ibuprofen PO 800 mg PO once Route: PO; rg5 04:00 Follow up: Response: No adverse reaction; Pain is decreased rg5 02:59 Drug: Methocarbamol PO 1500 mg PO once Route: PO; rg5 04:01 Follow up: Response: No adverse reaction; Pain is decreased rg5 02:59 Drug: [place] PO 10 mg-325 mg 1 tabs PO once Route: PO; rg5 04:00 Follow up: Response: No adverse reaction; Pain is decreased rg5 Medication: 02:30 VIS not applicable for this client. rg5 Intake: 02:24 PO: 0ml; Total: 0ml. rg5 Outcome: 04:30 Discharge ordered by . sp4 04:42 Discharged to home ambulatory, rg5 04:42 Condition: stable 04:42 Discharge instructions given to patient, Instructed on discharge instructions, Demonstrated understanding of instructions, Prescriptions given X 1, 04:43 Patient left the ED. rg5 Signatures: Dispatcher [employer] GONZALO [place] Mag[place] jj6 Juanito Fuentes MD MD sp4 Celestino Gu RN RN rg5 Cait Isaac RN RN br2
--- NOTE | 2025-03-27 04:31 | EDPHYS ---
Physician Documentation [facility] Name: Sergio Hayden Age: 39 yrs Sex: Male : 1985 Arrival Date: 03/27/2025 Time: 02:10 Bed 18 Private MD: ED Physician Juanito Fuentes HPI: 03/27 04:28 This 39 yrs old Male presents to ER via EMS with complaints of Fall Injury. sp4 20:52 37-year-old male presents with acute right ankle injury. Patient has history of plate sp4 and screws secondary to prior fibula fracture. Reports pain distal right lateral ankle. Patient arrives with EMS. Historical: - Allergies: 02:15 tylenol # 3 and tylenol # 4; br2 - PMHx: 02:15 ADD; br2 - PSHx: 02:15 right ankle surgery; br2 - Immunization history:: Adult Immunizations up to date. - Infectious Disease History:: Denies. - Immunization history: Last tetanus immunization: unknown. - Social history:: Smoking status: Patient reports the use of cigarette tobacco products, smokes one pack cigarettes per day. Patient uses alcohol, occasionally. Patient/guardian denies using street drugs. - Family history:: not pertinent. ROS: 20:52 Constitutional: Negative for fever, chills, and weight loss, positive right ankle sp4 injury, positive right ankle pain 20:52 All other systems are negative, Exam: 20:52 Constitutional: This is a well developed, well nourished patient who is awake, alert, sp4 and in no acute distress. Head/Face: Normocephalic, atraumatic. Eyes: Pupils equal round and reactive to light, extra-ocular motions intact. Lids and lashes normal. Conjunctiva and sclera are not injected. Cornea within normal limits. Periorbital areas with no swelling, redness, or edema. ENT: Nares patent. No nasal discharge, no septal abnormalities noted. Tympanic membranes are normal and external auditory canals are clear. Oropharynx with no redness, swelling, or masses, exudates, or evidence of obstruction, uvula midline. Mucous membranes moist. Neck: Trachea midline, no thyromegaly or masses palpated, and no cervical lymphadenopathy. Supple, full range of motion without nuchal rigidity, or vertebral point tenderness. Chest/axilla: Normal chest wall appearance and motion. Nontender with no deformity. No lesions are appreciated. Cardiovascular: Regular rate and rhythm with a normal S1 and S2. No gallops, murmurs, or rubs. Normal PMI, no JVD. No pulse deficits. Respiratory: Lungs have equal breath sounds bilaterally, clear to auscultation and percussion. No rales, rhonchi or wheezes noted. No increased work of breathing, no retractions or nasal flaring. Abdomen/GI: Soft, with normal bowel sounds. No distension or tympany. No guarding or rebound. No evidence of tenderness throughout. Back: No spinal tenderness. No costovertebral tenderness. Skin: Warm, dry with normal turgor. Normal color with no rashes, no lesions, and no evidence of cellulitis. MS/ Extremity: Pulses equal, no cyanosis. Neurovascular intact. Full, normal range of motion. Right lateral ankle has a scar from prior fibula stabilization. There is no deformity, normal pulses, no redness, no swelling, overall normal exam. Neuro: Awake and alert, GCS 15, oriented to person, place, time, and situation. Cranial nerves II-XII grossly intact. Motor strength 5/5 in all extremities. Sensory grossly intact. Vital Signs: 02:12 BP 138 / 90; Pulse 101; Resp 18; Temp 97.4(TE); Pulse Ox 99% on R/A; Weight 58.97 kg; br2 Height 5 ft. 5 in. ; Pain 8/10; 02:30 BP 132 / 83; Pulse 95; Resp 18; Pulse Ox 98% on R/A; rg5 03:00 BP 121 / 79; Pulse 93; Resp 18; Pulse Ox 98% on R/A; rg5 04:01 BP 122 / 76; Pulse 97; Pulse Ox 100% on R/A; Pain 0/10; rg5 02:12 Body Mass Index 21.63 (58.97 kg, 165.1 cm) br2 02:12 Pain Scale: Adult br2 04:01 Pain Scale: Adult rg5 [place] Coma Score: 02:24 Eye Response: spontaneous(4). Motor Response: obeys commands(6). Verbal Response: rg5 oriented(5). Total: 15. 20:52 Eye Response: spontaneous(4). Motor Response: obeys commands(6). Verbal Response: sp4 oriented(5). Total: 15. Trauma Score (Adult): 02:24 Eye Response: spontaneous(1); Verbal Response: oriented(1); Motor Response: obeys rg5 commands(2); Systolic BP: > 89 mm Hg(4); Respiratory Rate: 10 to 29 per min(4); [place] Score: 15; Trauma Score: 12 MDM: 02:51 Medical Screening Exam initiated sp4 04:28 ED course: EXAM DESCRIPTION: Ankle Right 3 View (accession [id number]), Foot Right 3 sp4 View (accession [id number]) CLINICAL HISTORY: PAIN COMPARISON: None. FINDINGS: 3 views of the right ankle and 3 views of the right foot. No acute fracture or dislocation. Normal osseous mineralization. Distal fibular fixation plate and screw. Talar dome has appropriate contour. Mild pes planus deformity. Tarsals and metatarsals are appropriately aligned. IMPRESSION: No acute fracture or dislocation. Electronically signed by: Tobi Alarcon DO 03/27/2025 04:11 AM. ED course: EXAM DESCRIPTION: Ankle Right 3 View (accession [id number]), Foot Right 3 View (accession [id number]) CLINICAL HISTORY: PAIN COMPARISON: None. FINDINGS: 3 views of the right ankle and 3 views of the right foot. No acute fracture or dislocation. Normal osseous mineralization. Distal fibular fixation plate and screw. Talar dome has appropriate contour. Mild pes planus deformity. Tarsals and metatarsals are appropriately aligned. IMPRESSION: No acute fracture or dislocation. . 20:53 Differential diagnosis: abrasion, closed head injury, contusion, sprain, strain. Data sp4 reviewed: vital signs, nurses notes, radiologic studies, plain films. Consideration of Admission/Observation Escalation of care including admission/observation considered. 03/27 02:51 Order name: Foot Right 3 View XRAY sp4 03/27 02:51 Order name: Ankle Right 3 View XRAY sp4 03/27 04:33 Order name: Crutches; Complete Time: 04:34 sp4 03/27 04:33 Order name: Ortho shoe: Right ankle Ortho boot; Complete Time: 04:34 sp4 Administered Medications: 02:58 Drug: Ibuprofen PO 800 mg PO once Route: PO; rg5 04:00 Follow up: Response: No adverse reaction; Pain is decreased rg5 02:59 Drug: Methocarbamol PO 1500 mg PO once Route: PO; rg5 04:01 Follow up: Response: No adverse reaction; Pain is decreased rg5 02:59 Drug: [place] PO 10 mg-325 mg 1 tabs PO once Route: PO; rg5 04:00 Follow up: Response: No adverse reaction; Pain is decreased rg5 Disposition: 20:54 Chart complete. sp4 Disposition Summary: 03/27/25 04:30 Discharge Ordered Notes: we recommend Crutches and Right Ortho boot for 2 weeks Location: Home sp4 Problem: new sp4 Symptoms: have improved sp4 Condition: Stable sp4 Diagnosis - Acute right ankle sprain, acute right ankle lateral ligaments sprain sp4 Followup: sp4 - With: Private Physician - When: 7 - 10 days - Reason: Recheck today's complaints Discharge Instructions: - Discharge Summary Sheet sp4 - Ankle Sprain, [id number] sp4 Forms: - Work release form sp4 - Patient Portal Instructions sp4 Prescriptions: - naproxen 250 mg Oral tablet - take 2 tablet ORAL route 2 times per day PRN pain; 50 tablet; Refills: 0, sp4 Product Selection Permitted Signatures: Dispatcher [employer] Juanito Pena MD MD sp4 Celestino Gu RN RN rg5 Cait Isaac RN RN br2
[2025-03-27 04:48] VITALS: TEMP 97.4
[2025-03-27 04:52] VITALS: BP 122/76; O2SAT 100
--- NOTE | 2025-03-27 06:16 | RAD REPORT ---
EXAM DESCRIPTION: Ankle Right 3 View (accession [id number]), Foot Right 3 View (accession [id number]) CLINICAL HISTORY: PAIN COMPARISON: None. FINDINGS: 3 views of the right ankle and 3 views of the right foot. No acute fracture or disloc ation. Normal osseous mineralization. Distal fibular fixation plate and screw. Talar dome has appropriate contour. Mild pes planus deformity. Tarsals and metatarsals are appropriately aligned. IMPRESSION: No acute fracture or dislocation. Electronically signed by: Tobi Alarcon DO 03/27/2025 04:11 AM CDT RP 4ZDM Due to temporary technical issues with the [email or web address] reporting system, reports are being alexandro d by the in-house radiologist without review as a courtesy to ensure prompt reporting the interpreting radiologist is fully responsible for the content of the report. Transcribed Date/Time: 03/27/2025 6:16 AM
--- NOTE | 2025-03-27 06:17 | RAD REPORT ---
EXAM DESCRIPTION: Ankle Right 3 View (accession [id number]), Foot Right 3 View (accession [id number]) CLINICAL HISTORY: PAIN COMPARISON: None. FINDINGS: 3 views of the right ankle and 3 views of the right foot. No acute fracture or disloc ation. Normal osseous mineralization. Distal fibular fixation plate and screw. Talar dome has appropriate contour. Mild pes planus deformity. Tarsals and metatarsals are appropriately aligned. IMPRESSION: No acute fracture or dislocation. Electronically signed by: Tobi Alarcon DO 03/27/2025 04:11 AM CDT RP 4ZDM Due to temporary technical issues with the PACS/[employer] reporting system, reports are being sign ed by the in-house radiologist without review as a courtesy to ensure prompt reporting the interpreting radiologist is fully responsible for the content of the report. Transcribed Date/Time: 03/27/2025 6:16 AM
== END 2025-03-27 04:43 | disposition home or self-care (01) ==
LOC: ER 02:10
DX: S93.491A Sprain of other ligament of right ankle, initial encounter (principal)